=== PATIENT | female | born 2005 | race Caucasian/White ===

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

== ENCOUNTER 2025-06-25 13:13 | Inpatient (IN) | payer OTHER ==
[2025-06-25] MEDS ORDERED: Sodium Chloride 0.9% 10 ML Syringe FLUSH PRN (13:20)
[2025-06-25] MEDS ORDERED: Nalbuphine 10 MG/1 ML Vial IVPUSH PRN (13:20)
[2025-06-25] MEDS ORDERED: Ondansetron 4 MG/2 ML SDV IVPUSH PRN (13:20)
[2025-06-25 13:50] LABS: BASOPHILS ABSOLUTE AUTO 0.0 K/mm3 (0.0-0.3); BASOPHILS PERCENT AUTO 0.4 % (0.0-1.0); EOSINOPHILS ABSOLUTE AUTO 0.1 K/mm3 (0.0-0.7); EOSINOPHILS PERCENT AUTO 1.3 % (0.0-5.0); IMMATURE GRAN ABSOLUTE AUTO 0.04 K/mm3 (0.00-0.05); IMMATURE GRAN PERCENT AUTO 0.4 % (0.0-0.4); LYMPHOCYTES ABSOLUTE AUTO 2.0 K/mm3 (2.0-8.8); LYMPHOCYTES PERCENT AUTO 19.4 % (50.0-65.0); MEAN PLATELET VOLUME 10.7 fl (9.4-12.3); MONOCYTES ABSOLUTE AUTO 0.9 K/mm3 (0.1-1.4); MONOCYTES PERCENT AUTO 9.2 % (2.0-10.0); NEUTROPHILS ABSOLUTE AUTO 7.0 K/mm3 (1.5-8.5); NEUTROPHILS PERCENT AUTO 69.3 % (35.0-45.0); NRBC ABSOLUTE 0.00 (0.00-0.03); NRBC PERCENT 0.0 % (0.0-0.2); PLATELET COUNT,PLT 280 K/mm3 (150-400); RED BLOOD CELL COUNT 4.17 M/mm3 (4.10-5.30); WHITE BLOOD CELL COUNT,WBC 10.12 K/mm3 (4.5-13.5)
[2025-06-25] MEDS: Lactated Ringers 1,000 ML IV SCH (14:04)
[2025-06-25] MEDS: Oxytocin/0.9 % Sodium Chloride 30 UNIT/500 ML BAG IV SCH (14:10)
[2025-06-25 14:58] LABS: HEPATITIS C AB NON-REACTIVE (Non-React)
[2025-06-25] MEDS ORDERED: diphenhydrAMINE 50 MG/ML SDV IVPUSH PRN (15:25)
[2025-06-25] MEDS ORDERED: ePHEDrine 50 MG/ML SDV IVPUSH PRN (15:25)
[2025-06-25] MEDS: Bupivacaine/fentaNYL/NS 100 ML Bag EPIDUR PRN (20:07)
[2025-06-26] MEDS: Sodium Chloride 0.9% 10 ML Syringe FLUSH SCH (10:14)
[2025-06-26] MEDS: Oxytocin/0.9 % Sodium Chloride 30 UNIT/500 ML BAG IV SCH (13:25)
[2025-06-26] MEDS: Witch Hazel Medicated Pads 40/Jar TOP PRN (19:53)
[2025-06-26] MEDS: Benzocaine/Menthol 20%-0.5% Spray 78 GM Cannister TOP PRN (19:54)
== END 2025-06-28 11:45 | disposition home or self-care (01) | DRG 807 ==
LOC: JD.OBCHECK 13:13 → JD.OB 13:14 → OBSVTOIN 06-26 13:37 → INTOOBSV 06-26 13:37 → OBSVTOIN 06-26 14:09 → JD.OB 06-26 20:48
PROVIDERS: ADMIT Obstetrics & Gynecology; ATTEND Obstetrics & Gynecology
PROC: 10E0XZZ Delivery of Products of Conception, External Approach (ICD-10-PCS; principal; 2025-06-26)
PROC: 0KQM0ZZ Repair Perineum Muscle, Open Approach (ICD-10-PCS; 2025-06-26)
PROC: 3E033VJ Introduction of Other Hormone into Peripheral Vein, Percutaneous Approach (ICD-10-PCS; 2025-06-26)
PROC: 3E0R3BZ Introduction of Anesthetic Agent into Spinal Canal, Percutaneous Approach (ICD-10-PCS; 2025-06-26)
PROC: 00HU33Z Insertion of Infusion Device into Spinal Canal, Percutaneous Approach (ICD-10-PCS; 2025-06-26)
DX: O99.824 Streptococcus B carrier state complicating childbirth (principal); Z37.0 Single live birth; O70.1 Second degree perineal laceration during delivery; Z3A.39 39 weeks gestation of pregnancy; Z90.89 Acquired absence of other organs; Z98.890 Other specified postprocedural states
CPT/HCPCS: 01967; 36415; 51701; 51702; 59025; 59409; 85025; 86592; 86803; 86850; 86900; 86901; 93005; A9270-GY; C1758; J0290; J3490; J7120; J7999